=== PATIENT | female | born 1985 | race Caucasian/White ===

== ENCOUNTER 2021-10-02 20:04 | Outpatient (CLI) | payer OTHER, SELFPAY ==
[2021-10-02 20:30] VITALS: BP 128/86; PULSE 85; RESP 20; TEMP 36.9
--- NOTE | 2021-10-02 21:10 | PC.NURSE ---
called Dr. De La Torre notifie pt admission for leaking fluid. reported negative ROM plus, Closed SVE, no contractions. discharge order received with follow up in office tomorrow for ELAN.
== END 2021-10-02 21:20 | disposition home or self-care (01) ==
LOC: ANHOBOP 20:09 → ANHOBPP 20:10
PROVIDERS: PCP Nurse Practitioner Family; Visit Provider Obstetrics & Gynecology
DX: O41.90X0 Disorder of amniotic fluid and membranes, unspecified, unspecified trimester, not applicable or unspecified (principal); Z3A.00 Weeks of gestation of pregnancy not specified
CPT/HCPCS: 84112; 99199

== ENCOUNTER 2021-12-04 18:03 | Observation (INO) | payer OTHER, SELFPAY ==
--- NOTE | ~2021-12-04 | US_ITS ---
EXAMINATION: US OB transvaginal DATE: 12/04/2021 19:34 INDICATION: Bleeding during second trimester TECHNIQUE: Real-time pelvic transabdominal and transvaginal ultrasound was performed. COMPARISON: None. FINDINGS: The cervical length measures 4.3 cm. No cervical funneling is identified. The fetus is in b reech presentation. IMPRESSION: 1. Cervical length of 4.3 cm without evidence of funneling. Reviewed, dictated and finalized at location F. X SYSTEM ADMINISTRATOR
--- NOTE | ~2021-12-04 | US_ITS ---
EXAMINATION: US OB limited DATE: 12/04/2021 19:34 INDICATION: Vaginal bleeding during second trimester TECHNIQUE: Real-time ultrasound of the pelvis was performed. The interpreting radiologist was not pre sent for the study. COMPARISON: None. FINDINGS: There is a single living fetus in breech presentation. The placenta is anterior and 7.6 cm from the internal cervical os. The placenta appears normal. cardiac activity and movement are noted. heart rate is 117 beats per minute (bpm). The amniotic fluid index is subjectively normal. IMPRESSION: 1. Single living fetus in breech presentation. 2. Normal appearing placenta. Reviewed, dictated and finalized at location F. ETING LIAISON
[2021-12-04 18:37] VITALS: BP 127/68; PULSE 81
[2021-12-04 19:01] VITALS: TEMP 36.3
--- NOTE | 2021-12-04 19:37 | OBADM ---
This patient, Kezia Mcclelland, admitted to the OB room [facility] Post [facility] for observation. Patient/family oriented to hospital policies and general routines including ID bracelet, bed and alarms, visiting hours, pain management, procedures, bathroom and other care routines, personal items, smoking policy, room service/diet, and visiting hours. Patient/Family are encouraged to report perceived risks to care and to ask questions if they do not understand what they are told or what they should do.
--- NOTE | 2021-12-04 19:38 | PC.NURSE ---
1857- called,informed pt came in after calling the office to inform them she had some vaginal bleeding and was instructed to come to L&D for an US. FHR is reactive, no contractions noted, and pt states she had one episode of darker red blood when she wiped and then the next time she wiped she stated it was light pink. Pt states she has no bleeding now. Order received for US to check placenta placement and cervical length, if WNL pt may be discharged home and f/u with Dr.Dalla Floyd in the office.
--- NOTE | 2021-12-05 20:28 | PM.OBTRLD ---
OB - Triage/Final Diagnosis Visit Information Date of evaluation: 12/04/21 Reason for evaluation: other (vaginal bleeding) Comments/Additional reasons for admission: I have assessed the risk for this patient, Jeniffer Mcclelland, and determined that she would benefit from observation care.
== END 2021-12-04 20:01 | disposition home or self-care (01) ==
PROVIDERS: Admitting Provider Student in an Organized Health Care Education/Training Program; PCP Nurse Practitioner Family; Visit Provider Student in an Organized Health Care Education/Training Program
DX: O46.92 Antepartum hemorrhage, unspecified, second trimester (principal); Z3A.25 25 weeks gestation of pregnancy
CPT/HCPCS: 76815; 76817; G0378; G0379

== ENCOUNTER 2022-03-02 19:53 | Outpatient (CLI) | payer OTHER, SELFPAY | END 2022-03-02 21:21 | disposition home or self-care (01) | LOC: ANHOBOP 20:42 → ANHLDR 03-08 09:24 | PROVIDERS: PCP Nurse Practitioner Family; Visit Provider Obstetrics & Gynecology | DX: O42.92 Full-term premature rupture of membranes, unspecified as to length of time between rupture and onset of labor (principal); Z3A.39 39 weeks gestation of pregnancy | CPT/HCPCS: 59025; 84112; 99199 ==

== ENCOUNTER 2022-03-11 05:06 | Inpatient (IN) | payer OTHER, SELFPAY ==
[2022-03-11] VITALS (132 sets, daily range): BP systolic 74–140; BP diastolic 38–99; PULSE 71–164; RESP 18; TEMP 36.1–36.4; O2SAT 91–100; BMI 37.0
[2022-03-11] MEDS: AMPICILLIN 2 GM/NS 100 ML 2 GM/100 ML BAG IVPB (05:45)
[2022-03-11 05:49] LABS: Basophils Absolute Auto 0.1 K/mm3 (0.0-0.1); Basophils Percent Auto 0.5 % (0.2-1.2); Eosinophils Absolute Auto 0.6 K/mm3 (0-0.3); Eosinophils Percent Auto 4.4 % (0-4.4); Immature Granulocyte Percent A 0.8 % (0-0.5); Lymphocytes Absolute Auto 1.84 K/mm3 (0.9-3.2); Mean Corpuscular HGB Conc 32.4 g/dl (32-36); Mean Corpuscular Hemoglobin 30.8 pg (26-34); Mean Corpuscular Volume 94.9 fl (80-100); Mean Platelet Volume 12.4 fl (7.4-10.4); Monocytes Percent Auto 7.6 % (2.6-8.5); Neutrophils Absolute Auto 9.5 K/mm3 (1.3-6.7); Neutrophils Percent Auto 72.7 % (45.5-73.1); Platelet Count Result 176 k/mm3 (150-375); Red Cell Distribution Width 14.4 % (11.5-14.5); White Blood Count 13.1 K/mm3 (4.5-10.0)
--- NOTE | 2022-03-11 06:02 | LDADM ---
This patient, Jeniffer Mcclelland, was admitted to Labor/Delivery/Recovery 104 on 03/11/22 at 05:06. Plans for labor, pain management and were discussed with patient. Patient/family oriented to hospital policies and general routines including ID bracelet, bed and alarms, visiting hours, pain management, procedures, bathroom and other care routines, personal items, smoking policy, room service/diet and guest tray routines, infant security routines, and visiting hours. Patient/Family are encouraged to report perceived risks to care and to ask questions if they do not understand what they are told or what they should do. See OBIX for further documentation.
[2022-03-11] MEDS: OXYTOCIN 30 UNITS/NS 500 ML 30 UNITS/500 ML BAG IV CONT (06:10)
[2022-03-11] MEDS: LACTATED RINGERS 1,000 ML 125 ML IV CONT ×4 (06:12→13:48)
[2022-03-11 06:27] LABS: Rapid Plasma Reagin Non-Reactive (NonReactive)
[2022-03-11 06:42] LABS: HIV 1/2 Ab P24 Ag Result Negative (Negative)
--- NOTE | 2022-03-11 09:00 | WPDANESEPP ---
Anes - Eval Pre Procedure Procedure: labor epidural Date/Time: 03/11/22 09:00 Preop Diagnosis: labor pain Pre Op Diagnosis: Induction Patient Data Age: 36 Gender: F Height: 1.83 m Weight: 124 kg Last Vital Signs Temp 36.4 C 03/11/22 06:30 Pulse 88 03/11/22 08:45 BP 120/65 03/11/22 08:45 O2 Del Method Room Air 03/11/22 06:48 Allergies Allergy/AdvReac Type Severity Reaction Status Date / Time tramadol Allergy Unknown VOMITING, Verified 03/11/22 06:43 NUMBNESS Home Medications Medication Instructions Recorded Confirmed Type vit no.95-ferrous 1 tablet PO DAILY 03/04/22 03/11/22 History fumarate 28 mg-folic acid 800 mcg tablet () omeprazole 20 mg capsule,delayed 20 mg PO DAILY 03/11/22 03/11/22 History release Laboratory Tests 03/11/22 03/11/22 03/11/22 05:40 05:40 05:40 WBC 13.1 K/mm3 H K/mm3 (4.5-10.0) RBC 3.90 M/mm3 L M/mm3 (4.2-5.4) Hgb 12.0 g/dL g/dL (12.0-15.0) Hct 37.0 % % (37.0-47.0) MCV 94.9 fl fl (80-100) MCH 30.8 pg pg (26-34) MCHC 32.4 g/dl g/dl (32-36) RDW 14.4 % % (11.5-14.5) Plt Count 176 k/mm3 k/mm3 (150-375) MPV 12.4 fl H fl (7.4-10.4) Immature Gran % (Auto) 0.8 % H % (0-0.5) Neut % (Auto) 72.7 % % (45.5-73.1) Lymph % (Auto) 14.0 % L % (18.3-44.2) Barron % (Auto) 7.6 % % (2.6-8.5) Eos % (Auto) 4.4 % % (0-4.4) Baso % (Auto) 0.5 % % (0.2-1.2) Lymph # (Auto) 1.84 K/mm3 K/mm3 (0.9-3.2) Barron # (Auto) 1.0 K/mm3 H K/mm3 (0.1-0.6) Eos # (Auto) 0.6 K/mm3 H K/mm3 (0-0.3) Baso # (Auto) 0.1 K/mm3 K/mm3 (0.0-0.1) Abs Immat Gran (auto) 0.10 K/mm3 H K/mm3 (0.00-0.031) Absolute Neuts (auto) 9.5 K/mm3 H K/mm3 (1.3-6.7) Absolute Nucleated RBC 0.0 K/mm3 K/mm3 (0.0-0.012) Nucleated RBC % 0.0 % % (0.0-0.2) RPR Non-reactive (NonReactive) HIV 1&2 Ab/P24 Ag 4thGn Negative (Negative) Blood Type Antibody Screen 03/11/22 05:40 WBC RBC Hgb Hct MCV MCH MCHC RDW Plt Count MPV Immature Gran % (Auto) Neut % (Auto) Lymph % (Auto) Barron % (Auto) Eos % (Auto) Baso % (Auto) Lymph # (Auto) Barron # (Auto) Eos # (Auto) Baso # (Auto) Abs Immat Gran (auto) Absolute Neuts (auto) Absolute Nucleated RBC Nucleated RBC % RPR HIV 1&2 Ab/P24 Ag 4thGn Blood Type A Positive Antibody Screen Negative Patient hx anesthesia problems: none Family hx anesthesia problems: none Results Review: All pre-operative results and documents have been reviewed as part of the pre-operative evaluation. [facility] Family History Family History Mother FH: mental illness Hypertension Asthma Father Congestive heart failure Kidney disease Social History Social History Smoking status: Current every day smoker Tobacco type: e-cigarettes/vaping Second hand tobacco smoke exposure: No Spiritual care concerns: No Exam Day of Procedure 03/11/22 09:00
[2022-03-11] MEDS: AMPICILLIN 1 GM/NS 50 ML 1 GM/50 ML BAG IVPB ×2 (09:46→13:48)
--- NOTE | 2022-03-11 11:26 | WPDHPUPDATE1 ---
History and Physical Update Update Date/Time: 03/11/22 11:26 36 yo at 39w0d elective IOL. History and Physical has been reviewed, including an updated exam of the patient. There are NO changes in the patient's condition. Risks, benefits, and alternatives have been discussed and questions answered. Patient agrees to proceed with procedure. A/P: 36 yo at 39w0d who presents for IOL admit to L&D routine admission orders Rh+ GBS positive, will give abx in labor FHT cat 1 plan for pitocin IOL
--- NOTE | 2022-03-11 11:33 | PM.OBPNLAB ---
Pain Control Date/time seen: 03/11/22 11:33 Pelvic Exam Dilation (cm): 4 Effacement (%): 60 station: -2 Amniotic membrane status: Ruptured (clear) Assessment and Plan Pitocin rate (mU/min): 18 Assessment: induction ongoing Plan: continuous present management Comments: AROM for clear fluid. IUPC placed
[2022-03-11] MEDS: ONDANSETRON INJ 4 MG/2 ML VIAL IV PUSH ×2 (14:55→21:14)
--- NOTE | 2022-03-11 18:32 | PM.OBPRVD ---
OB - Delivery Note Procedure Procedure: Patient pushed for a spontaneous vaginal delivery. The fetus was delivered atraumatically and placed on the maternal abdomen. The cord was clamped and cut after 1 minute of life. The cord was double clamped and cut and a segment of cord was collected for cord gases. Cord blood was collected for blood type and Coomb's testing. The placenta delivered spontaneously and was noted to be intact. The perineum was inspected and there were no lacerations noted. The uterus was firm and good hemostasis was noted. The patient and fetus were stable in the delivery room. Delivery monitor: External FHT Route of delivery: Episiotomy description: None Specimen: No Disposition: Floor () Complications: No immediate complications Baby Date of : 03/11/22 Weeks of gestation at delivery: 39 gender: Male presentation: vertex position: Right Occiput Anterior Placenta delivery description: Spontaneous Cord Vessel Description: 3 Vessels score one minute: 8 score five minutes: 9
[2022-03-11] MEDS: OXYTOCIN 30 UNITS/NS 500 ML 30 UNITS/500 ML BAG 125 UNITS IV CONT (19:12)
[2022-03-11] MEDS: BENZOCAINE 20% AER SPR (*SP) 56 GM CAN 1 SPRAY TOPICAL ×2 (20:53→21:00)
[2022-03-11] MEDS: LORATADINE 5 MG TABLET PO (21:00)
[2022-03-11] MEDS: IBUPROFEN 600 MG TABLET PO (22:10)
[2022-03-12] VITALS (7 sets, daily range): BP systolic 113–126; BP diastolic 64–77; PULSE 79–86; RESP 16–18; TEMP 36.4–37.1; O2SAT 98–100
[2022-03-12 04:36] LABS: Hemoglobin 11.7 g/dL (12.0-15.0)
[2022-03-12] MEDS: IBUPROFEN 600 MG TABLET PO ×2 (06:39→17:00)
[2022-03-12] MEDS: MULTIVIT/MIN/PREN/FOL AC/IRON TABLET 1 TAB PO (06:40)
[2022-03-12] MEDS: DOCUSATE SODIUM 100 MG CAPSULE PO ×2 (06:40→17:00)
[2022-03-12] MEDS: LANOLIN (LANSINOH) 7.5 GM CREAM 1 APPLIC TOPICAL (06:40)
--- NOTE | 2022-03-12 07:41 | PM.OBPNVD ---
OB - PN: Subj Subjective Date/time seen: 03/12/22 07:41 Patient comments: no complaints and pain well controlled baby status: doing well and nursing well OB - PN: Obj Data Labs CBC & Chem 7: 03/12/22 03:25 Labs: Laboratory Results - last 24 hr 03/12/22 03:25 Hgb 11.7 L Hct 35.0 L OB - PN A/P Plan day: 1 Plan: routine care Time Spent With Patient Time: Total time spent is greater than 50% in coordination of care (as documented) at patient's floor/unit and/or counseling patient: Time with patient: less than 15 minutes
--- NOTE | 2022-03-12 07:45 | PC.NURSE ---
0740 - Introductions were made and reported to mom information from primary RN concerning blood sugar 46 and baby had a urine at assessment. Encouraged skin to skin for . Mother is facetiming family and want to introduce her to the family first. Reported to the primary RN.
--- NOTE | 2022-03-12 09:23 | PC.NURSE ---
0910 - Primary RN reported that mom stated she breastfed 20 min on both breast starting at 0745 with no pain. RN will attempt to assess at a later time. Mother voiced understanding earlier to call out for a latch assessment.
--- NOTE | 2022-03-12 10:21 | WPDANLDPN2 ---
Anes-Prog Note L&D Date/Time: 03/12/22 10:21 Comfortable throughout: labor and delivery Neuraxial method: epidural Epidural/Spinal procedure site: clean & non-tender Neuro status: Neuro function grossly intact. Cardiovascular status: normal Respiratory status: normal Airway patency: baseline Mental status: baseline Post-Op hydration status: normal Vital Signs: Last Vital Signs Temp 37.1 C 03/12/22 07:40 Pulse 79 03/12/22 09:30 Resp 18 03/12/22 09:30 BP 113/77 03/12/22 07:40 Pulse Ox 99 03/12/22 09:30 O2 Del Method Room Air 03/12/22 09:30 Pain score (VAS): 10/22 I/O: Intake & Output 03/11/22 03/12/22 03/12/22 23:59 07:59 15:59 Intake Total 500 Output Total 225 Balance -225 500 Post-procedural complaints: none Patient feedback: Patient satisfied with anesthetic care.
[2022-03-12] MEDS: HYDROcodone/acetaminophen (*CRX) 5-325 MG TABLET 1 TAB PO ×2 (10:23→18:57)
--- NOTE | 2022-03-12 14:18 | PC.NURSE ---
[id number] Introductions were made, then consulted with patient to assess needs related to . Mother works well with her infant and states her history with her last 4 children. She states she has asked for a pump to stimulate her milk production and bottle feed her human milk. Reviewed positioning and ear, shoulder, hip alignment, supporting the breast, asymmetrical latch (off-center), and leading with the chin with a big open side gape. doesn't demonstrate big open wide latch. Mother described earlier feeding as painful. Mother encouraged to attempt to latch with optimal gape rather than trying to shove the nipple into the infants mouth. did not demonstrate any attempt to breastfeed. Encouraged skin to skin with infant, watching for visual feeding cues, stimulating infant for wakefulness to breastfeed. Mother continues to attempt to latch without not opening mouth to breastfeed. Mother desires to pump and feed. Nipple care reviewed with optimal latch and good positioning. Resources used to facilitate learning were used with the visual handouts/mom and baby guide. Reported to the primary RN and Percy Colin RN will set patient up with a pump.
[2022-03-13] MEDS: IBUPROFEN 600 MG TABLET PO (04:51)
--- NOTE | 2022-03-13 07:07 | PM.OBPNVD ---
OB - PN: Subj Subjective Date/time seen: 03/13/22 07:07 Patient comments: no complaints and pain well controlled baby status: doing well and nursing well OB - PN: Obj Data Labs CBC & Chem 7: 03/12/22 03:25 OB - PN A/P Plan day: 2 Plan: routine care, discharge home and follow up 6 weeks Time Spent With Patient Time: Total time spent is greater than 50% in coordination of care (as documented) at patient's floor/unit and/or counseling patient: Time with patient: less than 15 minutes
--- NOTE | 2022-03-13 07:14 | PM.DS ---
DS: Admitting Diagnosis Discharge Date 03/13/2022 Admitting Diagnosis term with favorable cervix DS: Discharge Diagnosis Discharge Diagnosis (1) Term : Code(s): Z34.90 - Encounter for supervision of normal , unspecified, unspecified trimester Status: Acute DS: Summary Hospital Course Hospital Course: the patient was admitted for induction of labor. She underwent spontaneous vaginal delivery of male which was unremarkable. Her hospital course was unremarkable. She remained afebrile. She was , ambulating, voiding without difficulty, and generally without complaints. Time Spent with Patient Time attestation: Total time spent providing and/or coordinating discharge services: Discharge Plan Discharge Attending physician on discharge: Kieran Reaves Discharging Clinician: Kieran Reaves Patient Disposition: Home, Self-Care Activity: may shower, no straining and pelvic rest Diet: heart healthy Wound Care Instructions: follow printed instructions Patient Instructions: Antibiotic Form Stand Alone Forms: General Discharge Information Follow-up/Referrals: Kieran Reaves MD [Physician] - Discharge Medications: No Action PNV cmb#95-ferrous fumarate-FA [] 28 mg iron- 800 mcg Tablet 1 tablet PO DAILY omeprazole 20 mg Capsule,Delayed Release(Dr/Ec) 20 mg PO DAILY Date of admission: 03/11/22 05:06 Primary Care Provider: AbbeyBailee Admitting Provider: Kieran Reaves Attending physician on admission: Kieran Reaves Condition: Stable
[2022-03-13] MEDS: MULTIVIT/MIN/PREN/FOL AC/IRON TABLET 1 TAB PO (07:44)
[2022-03-13] MEDS: LORATADINE 5 MG TABLET PO (07:44)
[2022-03-13] MEDS: HYDROcodone/acetaminophen (*CRX) 5-325 MG TABLET 1 TAB PO (07:45)
[2022-03-13 08:00] VITALS: PULSE 81; RESP 18; O2SAT 100
[2022-03-13 08:20] VITALS: BP 122/73; PULSE 81; RESP 18; TEMP 36.6; O2SAT 100
[2022-03-13] MEDS: DOCUSATE SODIUM 100 MG CAPSULE PO (08:54)
--- NOTE | 2022-03-13 10:53 | PC.NURSE ---
Patient was given the opportunity to view the discharge video Mother & Baby Care, The First Two Weeks and to ask questions. Patient declined viewing the video and has been given the mother/baby guide for home reference.
--- NOTE | 2022-03-13 13:46 | PC.NURSE ---
1110 - Mother led the conversation with her experience and plan to feed her so far and her ability to continue with the plan of attempting to breastfeed/pump/supplement to feed infant. Mother shares her experience since this her 5th child. Reminded parents to use good handwashing technique to prevent infection. Mother is feeding appropriately for growth of and understands stimulating to eat if needed. has had appropriate feedings in the last 24 hours meets the outcomes for weight, output and jaundice at this time. Discussed with mother there's not been an optimal latch assessed. Risks were discussed concerning effectively . Reviewed milk production with pumping consistently. Mother states she has pumped once this morning. Mother states she is confident to continue attempting to breastfeed, pumping, and supplementing her at home or when to call for assistance and denies any additional assistance or education at this time. Reinforced understanding of milk production, transition of milk, signs of adequate intake, prevention/relief of engorgement, responsive after visualizing feeding cues, the different methods of stimulating to breastfeed 2-3 hours after the start of the last feeding, pumping, and supplementing, community resources, medication information reviewed per [employer] and when to call a provider using the resource of the mom and baby guide/[facility] website. Mother voiced understanding of the education shared. Reported to the primary RN.
--- NOTE | 2022-03-13 13:50 | PC.NURSE ---
1305 - Mother has been discharged to home and left part of the pumping kit at the hospital. Pump kit given to primary RN incase mother comes back to pick it up.
== END 2022-03-13 12:52 | disposition home or self-care (01) | DRG 560 ==
LOC: ANHLDR 05:17 → ANHOB2 21:29
PROVIDERS: Student in an Organized Health Care Education/Training Program; Admitting Provider Obstetrics & Gynecology; PCP Nurse Practitioner Family; Visit Provider Obstetrics & Gynecology
DX: O99.824 Streptococcus B carrier state complicating childbirth (principal); O99.334 Smoking (tobacco) complicating childbirth; F17.290 Nicotine dependence, other tobacco product, uncomplicated; Z3A.39 39 weeks gestation of pregnancy; Z37.0 Single live birth
CPT/HCPCS: 36415; 85014; 85018; 85025; 86592; 86703; 86850; 86900; 86901; A9270; G0432; J0290; J2405; J2590; J2795; J7120

== ENCOUNTER 2024-02-01 14:38 | Emergency (ER) | payer BC, SELFPAY ==
--- NOTE | ~2024-02-01 | US_ITS ---
EXAMINATION: US OB <=14 wk fetus w TV DATE: 02/01/2024 17:55 INDICATION: Early . TECHNIQUE: Real-time transabdominal and transvaginal pelvic ultrasound was performed. COMPARISON: None. FINDINGS: TRANSABDOMINAL ULTRASOUND: The uterus measures 11.1 x 7.8 x 8.5 cm. TRANSVAGINAL ULTRASOUND: There is a cyst in the endometrial complex with mean diameter of 2.3 cm that correlates with an estimated gestational age of 7 weeks and 2 days +/- 5 days. A yolk sac is noted. A 2 mm echo in the cyst is indeterminate for a pole. The right ovary measures 2.9 x 3.1 x 3.0 c m. The left ovary measures 3.3 x 2.9 x 2.1 cm. There is no free fluid in the pelvis. IMPRESSION: 1. Single intrauterine gestation with estimated date of delivery of 09/17/2024. Reviewed, dictated and finalized at location E.
[2024-02-01 14:40] VITALS: BP 136/58; PULSE 85; RESP 18; TEMP 36.5; O2SAT 100
[2024-02-01 16:04] LABS: Basophils Absolute Auto 0.1 K/mm3 (0.0-0.1); Basophils Percent Auto 0.5 % (0.2-1.2); Eosinophils Absolute Auto 0.5 K/mm3 (0-0.3); Eosinophils Percent Auto 4.3 % (0-4.4); Hematocrit 42.6 % (37.0-47.0); Hemoglobin 13.8 g/dL (12.0-15.0); Immature Granulocyte Absolute 0.04 K/mm3 (0.00-0.031); Immature Granulocyte Percent A 0.4 % (0-0.5); Lymphocytes Absolute Auto 2.66 K/mm3 (0.9-3.2); Lymphocytes Percent Auto 23.6 % (18.3-44.2); Mean Corpuscular HGB Conc 32.4 g/dl (32-36); Mean Corpuscular Hemoglobin 30.9 pg (26-34); Mean Corpuscular Volume 95.5 fl (80-100); Mean Platelet Volume 12.2 fl (7.4-10.4); Monocytes Absolute Auto 0.8 K/mm3 (0.1-0.6); Monocytes Percent Auto 6.9 % (2.6-8.5); Neutrophils Absolute Auto 7.3 K/mm3 (1.3-6.7); Neutrophils Percent Auto 64.3 % (45.5-73.1); Platelet Count Result 224 k/mm3 (150-375); Red Blood Count 4.46 M/mm3 (4.2-5.4); Red Cell Distribution Width 12.9 % (11.5-14.5); White Blood Count 11.3 K/mm3 (4.5-10.0)
[2024-02-01 16:23] LABS: Alanine Aminotransferase 22 U/L (6-35); Albumin Level 4.7 g/dL (3.5-5.1); Alkaline Phosphatase 74 U/L (38-126); Anion Gap 7 mmol/L (4-12); Aspartate Amino Transferase 24 U/L (14-36); Bilirubin,Total 0.4 mg/dL (0.2-1.3); Blood Urea Nitrogen 13 mg/dL (7-17); Calcium 9.5 mg/dL (8.4-10.2); Carbon Dioxide 26 mmol/L (22-30); Chloride 104 mmol/L (98-107); Estimated Glomerular Filt Rate > 60; Glucose 100 mg/dL (65-110); Potassium 3.8 mmol/L (3.4-5.0); Sodium 137 mmol/L (137-145)
[2024-02-01 17:51] VITALS: BP 136/78; PULSE 78; RESP 16; TEMP 36.6; O2SAT 100
[2024-02-01 18:51] LABS: Appearance Urine Clear (Clear); Bilirubin Urine Negative (Negative); Blood Urine Negative (Negative); Color Urine Yellow (Yellow); Glucose Urine UA Negative (Negative); Ketones Urine Trace mg/dL (Negative); Leukocyte Esterase Ur Negative LEU/UL (Negative); Nitrate Urine Negative (Negative); Protein Urine Negative (Negative); Urobilinogen Urine 0.2 mg/dL (<2.0)
[2024-02-01 18:57] LABS: Add Urine Microscopic? NO; Specific Grav Ur 1.031 (1.001-1.035)
--- NOTE | 2024-02-01 21:18 | ED.FEMALEGU ---
HPI - Female Genitourinary General Chief complaint: Vaginal Bleeding Stated complaint: and bleeding Time Seen by Provider: 02/01/24 17:14 History of Present Illness HPI Narrative: Patient's LMP was November, had a positive home test in December, and has been spotting today, has not had confirmed intrauterine yet. Already on vitamins. This is a desired , she is G 6p5. Related Data Home Medications Medication Instructions Recorded Confirmed vit no.95-ferrous 1 tablet PO DAILY 03/04/22 03/11/22 fumarate 28 mg-folic acid 800 mcg tablet () omeprazole 20 mg capsule,delayed 20 mg PO DAILY 03/11/22 03/11/22 release Allergies Allergy/AdvReac Type Severity Reaction Status Date / Time tramadol Allergy Unknown VOMITING, Verified 03/11/22 06:43 NUMBNESS Review of Systems Review of Systems: All systems reviewed & are unremarkable except as noted in HPI and below PMFSH Family History Family History Mother FH: mental illness Hypertension Asthma Father Congestive heart failure Kidney disease Social History Social History Smoking status: Current every day smoker Tobacco type: e-cigarettes/vaping Second hand tobacco smoke exposure: No Spiritual care concerns: No Exam Narrative: EXAMINATION OF ORGAN SYSTEMS/BODY AREAS: Constitutional: Vital signs per nursing GENERAL:[No acute distress, non-toxic appearing.] HEAD: Normal with no signs of head trauma. EYES: EOMI, conjunctiva normal ENT: Hearing grossly intact LUNGS: Nonlabored breathing. HEART: [Regular rate and rhythm] ABD: [Soft], [nontender to palpation] EXT: Normal range of motion SKIN: [No rashes or lesions.] NEURO: [Alert and oriented x 3. No gross focal sensory or strength deficits.] PSYCH: Normal affect Course Vital Signs Vital signs: Vital Signs Temperature 97.7 F 02/01/24 14:40 Pulse Rate 85 02/01/24 14:40 Respiratory Rate 18 02/01/24 14:40 Blood Pressure 136/58 L 02/01/24 14:40 Pulse Oximetry 100 02/01/24 14:40 Oxygen Delivery Room Air 02/01/24 14:40 Temperature 97.8 F 02/01/24 17:51 Pulse Rate 78 02/01/24 17:51 Respiratory Rate 16 02/01/24 17:51 Blood Pressure 136/78 02/01/24 17:51 Pulse Oximetry 100 02/01/24 17:51 Oxygen Delivery Room Air 02/01/24 14:40 MDM - Female Genitourinary MDM Narrative Medical decision making narrative: Patient presenting with about 14 wks LMP with some spotting today, she is well appearing no distress, abdomen is soft and tenderness over the labs obtained, she is A positive, urinalysis without infection, normal CBCs, hCG 14,000, transvaginal ultrasound obtained unfortunately just shows a yolk sac, suspect is the dates are off or this may be a friend miscarriage, I have discussed this with the patient, and will have her follow-up with her OBGYN, with repeat HCG in the next 2-3 days, return precautions. patient agrees with plan. Lab Data 02/01/24 15:58 02/01/24 15:58 Labs: Lab Results 02/01/24 02/01/24 Range/Units 15:58 18:31 WBC 11.3 H (4.5-10.0) K/mm3 RBC 4.46 (4.2-5.4) M/mm3 Hgb 13.8 (12.0-15.0) g/dL Hct 42.6 (37.0-47.0) % MCV 95.5 (80-100) fl MCH 30.9 (26-34) pg MCHC 32.4 (32-36) g/dl RDW 12.9 (11.5-14.5) % Plt Count 224 (150-375) k/mm3 MPV 12.2 H (7.4-10.4) fl Immature Gran % (Auto) 0.4 (0-0.5) % Neut % (Auto) 64.3 (45.5-73.1) % Lymph % (Auto) 23.6 (18.3-44.2) % Monroe % (Auto) 6.9 (2.6-8.5) % Eos % (Auto) 4.3 (0-4.4) % Baso % (Auto) 0.5 (0.2-1.2) % Lymph # (Auto) 2.66 (0.9-3.2) K/mm3 Monroe # (Auto) 0.8 H (0.1-0.6) K/mm3 Eos # (Auto) 0.5 H (0-0.3) K/mm3 Baso # (Auto) 0.1 (0.0-0.1) K/mm3 Abs Immat Gran (auto) 0.04 H
== END 2024-02-01 19:23 | disposition home or self-care (01) ==
PROVIDERS: Emergency Provider Emergency Medicine; PCP Nurse Practitioner Family
DX: O20.0 Threatened abortion (principal); O99.331 Smoking (tobacco) complicating pregnancy, first trimester; F17.290 Nicotine dependence, other tobacco product, uncomplicated; Z3A.01 Less than 8 weeks gestation of pregnancy
CPT/HCPCS: 36415; 76801; 76817; 80053; 81003; 81025; 84702; 85025; 85461; 86850; 86900; 86901; 99284

== ENCOUNTER 2024-02-12 00:49 | Day surgery (SDC) | payer OTHER, SELFPAY ==
--- NOTE | 2024-02-11 14:14 | P.HP_ITS ---
H&P: HPI History of Present Illness Date/Time: 02/11/24 14:14 Chief Complaint: 1st trimester missed A/B Narrative: 38-year-old grand multiparous patient with and first-trimester missed A/B. She had a 7 week 6 day size with no heart tones. There is clotted blood present as well. Risks and benefits reviewed in great detail. She had all questions answered and asked to proceed [facility] Family History Family History Mother FH: mental illness Hypertension Asthma Father Congestive heart failure Kidney disease Social History Social History Smoking status: Current every day smoker Tobacco type: e-cigarettes/vaping Second hand tobacco smoke exposure: No Spiritual care concerns: No Meds Home Medications and Allergies Home Medications Medication Instructions Recorded Confirmed Type vit no.95-ferrous 1 tablet PO DAILY 03/04/22 03/11/22 History fumarate 28 mg-folic acid 800 mcg tablet () omeprazole 20 mg capsule,delayed 20 mg PO DAILY 03/11/22 03/11/22 History release Allergies Allergy/AdvReac Type Severity Reaction Status Date / Time tramadol Allergy Unknown VOMITING, Verified 03/11/22 06:43 NUMBNESS Exam Const: General: cooperative, healthy appearing and comfortable Nutritional Appearance: overweight Orientation/consciousness: oriented to person, oriented to place and oriented to time Resp: Effort & Inspection: normal respiratory effort Cardio: Rate: regular rate Rhythm: regular rhythm Heart sounds: S1 normal heart sound present and S2 normal heart sound present GI: Inspection: normal to inspection : External Female Exam: normal external appearance Speculum Exam - Vagina: normal appearance of the vagina and vaginal bleeding Speculum Exam - Cervix: normal appearance of the cervix Bimanual exam- vagina & uterus: enlarged Bimanual Exam- Adnexa, other: normal adnexae Assessment and Plan Assessment and plan (1) Missed : Code(s): O02.1 - Missed Status: Acute Plan Suction dilatation and curettage
[2024-02-11 14:30] VITALS: BMI 36.6
--- NOTE | 2024-02-11 14:31 | PC.NURSE ---
Report to the Outpatient Waiting Room, entrance under the green pavilion located off [facility], at time _1230_ on date _[id number]_. Planned Procedure Time: _230pm_. Time changes happen often and if your time is changed the preop area will call you the afternoon before. - You and your visitor will be asked to self-screen and do not enter if you have any COVID symptoms. - A mask is optional within the hospital at this time. Patients may have clear liquids (water, carbonated beverages, clear teas, apple juice) until 3 hours prior to surgery with a maximum of 20 ounces. - No food from midnight until time of surgery Take the following medications with a SIP of water the morning of surgery: ____None DO NOT STOP ANY OF YOUR OTHER PRESCRIPTION MEDICATIONS PRIOR TO SURGERY ?EXCEPT THE FOLLOWING Medications to discontinue per physician ____None Date to take last dose Please no make-up, nail faroese, hairspray, perfume, deodorant, or body powder the day of surgery. No jewelry (including any body piercings) or valuables the day of surgery, leave them at home. Please take a shower or bath the night before, or the morning of, surgery with an antibacterial soap. Wear comfortable, loose fitting clothing. - Jewelry must be removed prior to entering the operating room. Rings and piercings that are not removed may be cut off. - The hospital will not accept responsibility for valuables. - Please leave all valuables, including medications, at home the day of surgery. If you are going home after surgery, a licensed fuel truck driver must drive you home. - NO public transportation without another adult if you receive anesthesia. - We recommend that an adult stay with you for 24 hours following discharge. - We also recommend that you do not drive, make important decision, drink alcoholic beverages, or take any drugs that were not prescribed by your health care provider for at least 24 hours after your discharge time. Follow any additional instructions given to you from your surgeon. If you or anyone in your household have experienced Covid symptoms in the past week, please notify your surgeon or the nurse liaison at the phone number below for possible testing. Telephone instructions given to __Casondra___and asked if any additional questions and then verbalized understanding. Patient advised to call surgeon office or pre surgery nurse liaison [phone] if any additional questions.
--- NOTE | 2024-02-12 06:17 | WPDHPUPDATE1 ---
History and Physical Update Update Date/Time: 02/12/24 06:17 History and Physical has been reviewed, including an updated exam of the patient. There are NO changes in the patient's condition. Risks, benefits, and alternatives have been discussed and questions answered. Patient agrees to proceed with procedure.
[2024-02-12 12:45] VITALS: BP 127/82; PULSE 75; RESP 18; TEMP 36.5; O2SAT 100; BMI 35.8
[2024-02-12] MEDS: LACTATED RINGERS 1,000 ML 30 ML IV CONT (13:15)
--- NOTE | 2024-02-12 13:17 | WPDANESEPPF ---
Anes - Initial Pre Proc Eval Procedure: Operation Date: 02/12/24 14:30 Proposed Procedures p Suction Dilatation and Curettage - Kieran Floyd MD Date/Time: 02/12/24 13:17 Surgeon: Kieran Floyd MD Pre Op Diagnosis: missed AB Patient Data Age: 38 Gender: F Height: 1.83 m Weight: 122.7 kg Allergies Allergy/AdvReac Type Severity Reaction Status Date / Time tramadol Allergy Unknown VOMITING, Verified 02/12/24 13:19 NUMBNESS Home Medications Medication Instructions Recorded Confirmed Type vit no.95-ferrous 1 tablet PO DAILY 03/04/22 02/11/24 History fumarate 28 mg-folic acid 800 mcg tablet () omeprazole 20 mg capsule,delayed 20 mg PO DAILY 03/11/22 02/11/24 History release hydrocodone 5 mg-acetaminophen 325 1 tablet PO Q4H PRN pain #20 tabs 02/12/24 Rx mg tablet Patient hx anesthesia problems: none Family hx anesthesia problems: none Results Review: All pre-operative results and documents have been reviewed as part of the pre-operative evaluation. [facility] Family History Family History Mother FH: mental illness Hypertension Asthma Father Congestive heart failure Kidney disease Social History Social History Smoking status: Current every day smoker Tobacco type: e-cigarettes/vaping Second hand tobacco smoke exposure: No Alcohol intake: current Living arrangements: with family Spiritual care concerns: No Anes - Eval Final PreProcedure Day of Procedure 02/12/24 13:17 Patient weight: obese Heart: regular rate and rhythm Lungs: clear to auscultation Airway: Mallampati scale Neurological: alert and oriented Last oral intake: >/= 8 hours ASA classification: II Emergent: no Anesthetic plan: proceed Anesthesia type and monitoring: general GIVS and standard monitoring Results Review: All pre-operative results and documents have been reviewed as part of the pre-operative evaluation. Informed Consent: The patient's anesthetic plan and its attendant risks and benefits were discussed with the patient/family/POA. Questions were solicited and answers provided to the satisfaction of the patient/family/POA.
[2024-02-12] MEDS: ACETAMINOPHEN 500 MG TABLET 1000 MG PO (13:18)
[2024-02-12] MEDS: KETOROLAC 30 MG/ML VIAL (*BKC) IV PUSH (13:38)
[2024-02-12] MEDS: LIDOCAINE 1% BUFFERED WITH 8.4% SODIUM BICARB 1 ML SYRINGE 10 ML INFILTRATE (13:40)
--- NOTE | 2024-02-12 13:49 | W.PM.PROC2 ---
Procedure Note - Detailed Date of Procedure 02/12/24 Pre-op Diagnosis missed AB Post-op Diagnosis Same Procedure Performed Suction dilatation curettage Surgeon Kieran Floyd MD Anesthesia MAC and Local Indications this is 38-year-old multiparous female with missed A/B Findings uterus 10 tissue consistent with products of conception Description of Procedure patient is prepped draped sterile fashion placed dorsal position. Excellent IV sedation weighted speculum placed in posterior fornix of. Anterior lip of cervix grasped with single-tooth tenaculum. 2.5cc% xylocaine anesthesia placed at 2:10 a.m. cervix. Uterus sounded to 10cm. Serial dilatation with fragmented dilators performed followed by passes 10. Curved suction curette. Moderate amount of placental tissue was along with blood fluid with good grating sound was heard the instruments withdrawn the patient was awakened went to recovery in satisfactory condition. All sponge, needle, instrument counts were correct. Blood loss estimated 50cc she did not require RhoGAM she is Rh positive Estimated Blood Loss 50 Drains No Packing No Pathology Yes Complications No immediate complications Condition Stable Disposition PACU
[2024-02-12 13:51] VITALS: BP 93/38; PULSE 82; RESP 16; O2SAT 95
[2024-02-12 14:15] VITALS: BP 123/60; PULSE 65; RESP 20
[2024-02-12 14:40] VITALS: BP 132/64; PULSE 63; RESP 20
== END 2024-02-12 14:44 | disposition home or self-care (01) ==
PROVIDERS: PCP Nurse Practitioner Family; Visit Provider Obstetrics & Gynecology
PROC: (CPT 59820; principal; 2024-02-12 14:30)
DX: O02.1 Missed abortion (principal); F17.290 Nicotine dependence, other tobacco product, uncomplicated; Z79.891 Long term (current) use of opiate analgesic; Z82.49 Family history of ischemic heart disease and other diseases of the circulatory system
CPT/HCPCS: 59820; 88305; A9270; J1100; J1885; J2250; J2405; J2704; J3010; J7120